=== PATIENT | male | born 1940 | race Caucasian/White ===

== ENCOUNTER 2020-08-20 18:04 | Inpatient (IN) | payer MEDICARE ==
[~2020-08-20] VITALS: Ht 177.8 cm; Wt 80.7 kg
[2020-08-20] MEDS ORDERED: CRESTOR40 MG PO (20:18)
[2020-08-20] MEDS ORDERED: LANTUS SOL100 UNIT/1 SQ (20:18)
[2020-08-20] MEDS ORDERED: GLUCOTROL XL10 MG PO (20:19)
[2020-08-20] MEDS ORDERED: NORVASC10 MG PO (20:19)
[2020-08-20] MEDS ORDERED: COREG 3.125M3.125 MG PO (20:20)
[2020-08-20] MEDS ORDERED: HYDRALAZINE HC100 MG PO (20:20)
[2020-08-20] MEDS ORDERED: VITAMIN B-121000 MCG PO (20:20)
[2020-08-20] MEDS ORDERED: VITAMIN D350 MCG PO (20:21)
[2020-08-20] MEDS ORDERED: IRON325 M1 PO (20:22)
[2020-08-20 21:16] LABS: HEMOGLOBIN 8.1 gm/dl (14.0-17.5); RED BLOOD COUNT 2.84 M/UL (4.20-5.50); WHITE BLOOD COUNT 4.7 K/UL (4.5-11.0)
[2020-08-21 04:24] LABS: HEMOGLOBIN 6.8 gm/dl (14.0-17.5); RED BLOOD COUNT 2.42 M/UL (4.20-5.50); WHITE BLOOD COUNT 3.4 K/UL (4.5-11.0)
[2020-08-22 03:59] LABS: HEMOGLOBIN 7.7 gm/dl (14.0-17.5); WHITE BLOOD COUNT 4.2 K/UL (4.5-11.0)
[2020-08-22 04:08] LABS: RED BLOOD COUNT 2.74 M/UL (4.20-5.50)
[2020-08-22 11:14] LABS: CREATININE, URINE 47.3 mg/dL (Not Estab.)
[2020-08-23 04:55] LABS: HEMOGLOBIN 8.7 gm/dl (14.0-17.5); RED BLOOD COUNT 2.99 M/UL (4.20-5.50); WHITE BLOOD COUNT 4.2 K/UL (4.5-11.0)
[2020-08-24 03:38] LABS: RED BLOOD COUNT 2.61 M/UL (4.20-5.50); WHITE BLOOD COUNT 3.1 K/UL (4.5-11.0)
[2020-08-24 03:42] LABS: HEMOGLOBIN 7.6 gm/dl (14.0-17.5)
[2020-08-24] MEDS ORDERED: CATAPRES 0.1MG0.1 MG PO (12:40)
[2020-08-24] MEDS ORDERED: HYDRALAZINE HC100 MG PO (12:40)
== END 2020-08-24 15:53 | disposition home or self-care (01) | DRG 683 ==
LOC: M/S 18:13
PROVIDERS: Internal Medicine; Internal Medicine Nephrology; ADMIT Internal Medicine
PROC: 30233N1 Transfusion of Nonautologous Red Blood Cells into Peripheral Vein, Percutaneous Approach (ICD-10-PCS; principal; 2020-08-22)
DX: N17.0 Acute kidney failure with tubular necrosis (principal); D61.818 Other pancytopenia; J81.1 Chronic pulmonary edema; E11.22 Type 2 diabetes mellitus with diabetic chronic kidney disease; I12.9 Hypertensive chronic kidney disease with stage 1 through stage 4 chronic kidney disease, or unspecified chronic kidney disease; N18.4 Chronic kidney disease, stage 4 (severe); E78.5 Hyperlipidemia, unspecified; E11.51 Type 2 diabetes mellitus with diabetic peripheral angiopathy without gangrene; N28.89 Other specified disorders of kidney and ureter; T50.995A Adverse effect of other drugs, medicaments and biological substances, initial encounter; E53.8 Deficiency of other specified B group vitamins; I83.90 Asymptomatic varicose veins of unspecified lower extremity; H91.90 Unspecified hearing loss, unspecified ear; Z79.4 Long term (current) use of insulin; Z85.820 Personal history of malignant melanoma of skin; Z82.49 Family history of ischemic heart disease and other diseases of the circulatory system; Z88.8 Allergy status to other drugs, medicaments and biological substances
CPT/HCPCS: 36415; 36430; 80048; 80053; 80061; 80069; 81001; 82043; 82550; 82570; 82607; 82728; 82803; 82962; 83036; 83540; 83550; 84100; 84156; 84443; 85025; 85027; 85045; 86850; 86900; 86901; 86920; 89050; J7120; P9016; U0002

== ENCOUNTER → 2020-09-05 | Outpatient (CLI) | payer MEDICARE ==
[~2020-09-05] MED LIST: CATAPRES 0.1MG0.1 MG PO; COREG 3.125M3.125 MG PO; CRESTOR40 MG PO; GLUCOTROL XL10 MG PO; HYDRALAZINE HC100 MG PO; IRON325 M1 PO; LANTUS SOL100 UNIT/1 SQ; NORVASC10 MG PO; PROTONIX40 MG PO; VITAMIN B-121000 MCG PO; VITAMIN D350 MCG PO; ZESTRIL 40 MG T40 MG PO
== END ==
LOC: MRI 12:11
DX: N28.89 Other specified disorders of kidney and ureter (principal)
CPT/HCPCS: 74181

== ENCOUNTER → 2020-10-12 | Outpatient (CLI) | payer MEDICARE ==
[2020-10-12 17:50] LABS: HEMOGLOBIN 5.7 gm/dl (14.0-17.5)
== END ==
LOC: EROP 16:03
PROVIDERS: Internal Medicine Nephrology
DX: D64.9 Anemia, unspecified (principal)
CPT/HCPCS: 36415; 36430; 85014; 85018; 86850; 86900; 86901; 86920; P9016

== ENCOUNTER 2020-11-08 16:26 | Outpatient (CLI) | payer MEDICARE ==
[~2020-11-08] VITALS: Ht 177.8 cm; Wt 73.9 kg
[~2020-11-08 16:26] MED LIST changes: -PROTONIX40 MG PO; -ZESTRIL 40 MG T40 MG PO
[2020-11-08] MEDS ORDERED: ZESTRIL 40 MG T40 MG PO (17:36)
[2020-11-08] MEDS ORDERED: PROTONIX40 MG PO (17:36)
--- NOTE | 2020-11-08 21:37 | NUR ---
AT APPROXIMATELY 2014, ALAYNA BEASLEY RN CALLED DR SPENCE PERTAINING TO PT'S BLOOD. PT IS O NEGATIVE AND UNIT WAS O POSITIVE, AFTER TALKING TO BLOOD BANK AND DR SPENCE, BOTH SAID OKAY TO GIVE BLOOD TO PATIENT.
== END 2020-11-09 05:27 | disposition home or self-care (01) ==
LOC: MED SURG 4 16:26 → EROP 16:26
DX: D63.1 Anemia in chronic kidney disease (principal); N18.6 End stage renal disease; D50.8 Other iron deficiency anemias; E11.22 Type 2 diabetes mellitus with diabetic chronic kidney disease; C64.9 Malignant neoplasm of unspecified kidney, except renal pelvis
CPT/HCPCS: 36430; 82962; 86850; 86900; 86901; 86920; P9016

== ENCOUNTER → 2021-04-24 | Outpatient (CLI) | payer MEDICARE ==
[~2021-04-24] MED LIST changes: +PROTONIX40 MG PO; +ZESTRIL 40 MG T40 MG PO
[2021-04-24 18:51] LABS: RED BLOOD COUNT 1.89 M/UL (4.20-5.50)
[2021-04-24 19:12] LABS: HEMOGLOBIN 5.9 gm/dl (14.0-17.5)
== END ==
LOC: LAB 17:29
PROVIDERS: Internal Medicine Nephrology
DX: D63.1 Anemia in chronic kidney disease (principal)
CPT/HCPCS: 85027; 86850; 86900; 86901; 86920; P9016

== ENCOUNTER → 2021-04-25 | Outpatient (CLI) | payer MEDICARE | LOC: EROP 16:01 | DX: N18.6 End stage renal disease (principal); D63.1 Anemia in chronic kidney disease; D50.8 Other iron deficiency anemias | CPT/HCPCS: 36430; P9016 ==

== ENCOUNTER → 2021-12-18 | Outpatient (CLI) | payer MEDICARE | LOC: LAB 11:59 | DX: K65.9 Peritonitis, unspecified (principal) | CPT/HCPCS: 36415; 80202 ==

== ENCOUNTER → 2022-01-09 | Outpatient (CLI) | payer MEDICARE | LOC: EMI 14:58 → KOH-I 01-15 13:45 | DX: I63.9 Cerebral infarction, unspecified (principal); G31.9 Degenerative disease of nervous system, unspecified | CPT/HCPCS: 70551 ==

== ENCOUNTER → 2022-01-25 | Outpatient (CLI) | payer MEDICARE ==
[2022-01-25 10:21] LABS: BODY FLUID SOURCE PLEURAL; MONONUCLEAR CELLS 90 %; RBC (AUTOMATED) 0 10^6; WBC (AUTOMATED) 10 10^3
[2022-01-25 10:22] LABS: POLYMORPHONUCLEAR 10 %
== END ==
LOC: LBRF 09:12
PROVIDERS: Internal Medicine Nephrology
DX: N18.6 End stage renal disease (principal); K65.9 Peritonitis, unspecified
CPT/HCPCS: 87205; 89051